=== PATIENT | female | born 1960 | race Caucasian/White ===

== ENCOUNTER → 2020-11-12 15:37 | Outpatient (CLI) | payer BC, SELFPAY ==
--- NOTE | 2020-11-12 15:39 | DI.RAD.S_ITS ---
PROCEDURE: XR RIBS LT MIN 3V W CXR1V INDICATIONS: s/p fall TECHNIQUE: 3 views of the left ribs were acquired, along with a single view chest. COMPARISON: None. FINDINGS: Surgical changes and devices: None. Bones and chest wall: No fractures or dislocations. No suspicious bony lesions. Overlying soft tissues appear unremarkable. Lungs and pleura: No pleural effusions or pneumothorax. Lungs appear clear. Mediastinum: Mediastinal contours appear normal. Heart size is normal. IMPRESSION: No visualized acute fracture or dislocation. However, if clinical concern and/or pain persist, short interval imaging followup in 7-10 days is recommended, as occult injury cannot be definitively excluded. Dictated by: Anaya Mercedes M.D. on 11/12/2020 at 15:59 Approved by: Anaya Mercedes M.D. on 11/12/2020 at 15:59
== END ==
PROVIDERS: Referring Provider Nurse Practitioner Family; Visit Provider Nurse Practitioner Family
DX: R07.81 Pleurodynia (principal)
CPT/HCPCS: 71101

== ENCOUNTER 2021-08-07 15:54 | Emergency (ER) | payer BC, SELFPAY ==
[2021-08-07] VITALS (9 sets, daily range): BP systolic 159–200; BP diastolic 87–103; PULSE 66–75; RESP 16–25; TEMP 35.6; O2SAT 97–100; BMI 25.7
--- NOTE | 2021-08-07 16:09 | DI.RAD.S_ITS ---
PROCEDURE: XR CHEST 1V INDICATIONS: chest pain TECHNIQUE: One view of the chest was acquired. COMPARISON: None. FINDINGS: Surgical changes and devices: None. Lungs and pleura: Lungs are clear. No pleural effusions or pneumothorax. Mediastinum: Mediastinal contours appear normal. Heart size is normal. Bones and chest wall: No suspicious bony lesions. Overlying soft tissues appear unremarkable. IMPRESSION: No acute pulmonary process. Dictated by: Anaya Mercedes M.D. on 08/07/2021 at 16:40 Approved by: Anaya Mercedes M.D. on 08/07/2021 at 16:41
[2021-08-07 16:21] LABS: Add Manual Diff / Slide Review NO; Basophils Absolute Auto 100 /uL (0-100); Eosinophils Absolute Auto 0 /uL (0-450); Eosinophils Percent Auto 0.4 % (2-4); Hematocrit 40.5 % (36-46); Hemoglobin 14.3 g/dL (12.0-16.0); Lymphocytes Absolute Auto 2400 /uL (1100-4500); Lymphocytes Percent Auto 25.7 % (25-40); Mean Corpuscular HGB Conc 35.2 % (30-36); Mean Corpuscular Volume 96.5 fL (80-100); Monocytes Absolute Auto 600 /uL (0-900); Monocytes Percent Auto 6.8 % (3-14); Neutrophils Absolute Auto 6200 /uL (1500-7000); Neutrophils Percent Auto 66.1 % (50-75); Platelet Count 226 X10^3/uL (150-400); Red Cell Distribution Width 12.3 % (11.6-14.8); White Blood Cell Count 9.4 X10^3/uL (4.5-11.0)
[2021-08-07 16:34] LABS: Alanine Aminotransferase 34 IU/L (<35); Albumin 4.9 g/dL (3.5-5.0); Albumin Globulin Ratio 1.9 (1.0-2.8); Alkaline Phosphatase 109 U/L (38-126); Aspartate Aminotransferase 39 IU/L (14-36); BUN Creatinine Ratio 16.9 (6-22); Bilirubin Total 0.4 mg/dL (0.2-1.3); Blood Urea Nitrogen 11 mg/dL (7-17); Carbon Dioxide 27 mmol/L (22-32); Chloride 101 mmol/L (98-107); Creatine Kinase 68 U/L (30-135); Estimated Glomerular Filt Rate > 60 mL/min (>60); Globulin 2.6 g/dL (1.7-4.1); Glucose 99 mg/dL (80-110); HEMOLYSIS < 15 (0-50); Lipase 93 U/L (23-300); Magnesium 1.9 mg/dL (1.6-2.3); Potassium 3.8 mmol/L (3.4-5.1); Sodium 136 mmol/L (137-145); Total Protein 7.5 g/dL (6.3-8.2)
[2021-08-07 16:44] LABS: Troponin I < 0.012 ng/mL (0.01-0.034)
--- NOTE | 2021-08-07 20:51 | ED.ARRPALP ---
HPI - Arrhythmia/Palpitations General Chief Complaint: Arrhythmia/Palpitations Stated Complaint: ABNORMAL EKG SENT BY [facility] Time Seen by Provider: 08/07/21 20:38 Source: patient Mode of arrival: Ambulatory History of Present Illness HPI narrative: Patient sent here from primary care office for evaluation EKG in their office that shows PVC. At the same EKG here is normal sinus rhythm. No PVC. Patient states she moved here from floor in the past year. Has been going through a lot of stress and depression. Is trying to renovated old house. She has seen her family doctor the past few weeks. She was started on sertraline a low dose couple weeks ago. Increase the doses well in the past week and she states her anxiety and depression has been worse. Very tearful last night and crying. She was at the office today for re-evaluation of this medication when the EKG was done. Blood pressure noted. She states even in [place] her primary care would note blood pressure high initially and then redo blood pressure and it would be normal. In November it was slightly high at 150 9/99. At this time patient denies any chest pain or palpitations. She denies any recent chest pain headache slurred speech facial droop or any dyspnea. She is only fill anxiety and depression. No SI or HI. Related Data Home Medications Medication Instructions Recorded Confirmed No Known Home Medications 11/12/20 11/12/20 Allergies Allergy/AdvReac Type Severity Reaction Status Date / Time No Known Drug Allergies Allergy Unverified 11/12/20 16:31 Review of Systems Review of Systems Narrative: GENERAL: Denies chills, fatigue, malaise, fever, sweats. HEENT: Denies sinus pain, ear pain, sore throat RESPIRATORY: Denies dyspnea, cough CARDIOVASCULAR: Denies chest pain, palpitations GASTROINTESTINAL: Denies nausea, vomiting, abdominal pain : Denies dysuria, frequency, hematuria MUSCULOSKELETAL: denies muscle or bony pain SKIN: Denies rash, skin lesions NEUROLOGIC: Denies weakness, numbness PSYCH: Positive for anxiety/depression, and negative for SI or HI. ROS Unobtainable: All systems reviewed & are unremarkable except as noted in HPI and below Patient History Social History Smoking Status: Never smoker Smoking Status: Never smoker Exam Narrative Exam Narrative: GENERAL: in no distress, not toxic not dyspneic HEAD: Normocephalic. EYES: Pupils equal round No scleral icterus. ENT: Mucous membranes moist. NECK: Trachea midline. CARDIOVASCULAR: Regular rate and rhythm without murmurs RESPIRATORY: Clear to auscultation. Breath sounds equal bilaterally. No wheezes, rales, or rhonchi. GASTROINTESTINAL: Abdomen soft, non-tender EXTREMITIES: No gross deformities. BACK: No flank tenderness. NEURO: AOx4. SKIN: Warm and dry PSYCH: Is mild/moderate anxious, is cooperative, not tearful. No SI or HI Initial Vital Signs Initial Vital Signs: Vital Signs Temperature 96.1 F L 08/07/21 16:00 Pulse Rate 75 08/07/21 16:00 Respiratory Rate 18 08/07/21 16:00 Blood Pressure 181/99 H 08/07/21 16:00 Pulse Oximetry 100 08/07/21 16:00 Oxygen Delivery Method 08/07/21 16:00 Course Course Course Narrative: No new issues during course of stay. Orders Ordered: ED Orders 08/07/21 16:09 XR chest 1V Stat EKG-12 Lead Stat 08/07/21 16:12 Complete Blood Count AUTO DIFF Stat Comprehensive Metabolic Panel Stat Lipase Stat Magnesium Stat Troponin & CK Cardiac Panel Stat Reevaluation(s) Reevaluation #1: Reviewed results with patient. She does agree likely her symptoms due to sertraline. She has been referred to Behavioral Health by her primary care as alternative to medicine for her anxiety and depression. Time: 20:54 Reevaluation #2: Blood pressure is improved. 159/87. Patient much more calm and relaxed. Not anxious. She desires discharge home. Time: 21:45 Vital Signs Vital signs: Vital Signs - 8 hr 08/07/21 16:00 08/07/21 18:48 08/07/21 18:49 Temperature 96.1 F L Pulse Rate 75 74 71 Respiratory Rate 18 Blood Pressure 181/99 H Pulse Oximetry 100 100 100 Oxygen Delivery Method Room Air 08/07/21 18:49 08/07/21 19:00 08/07/21 19:30 Temperature Pulse Rate 71 Respiratory Rate 16 Blood Pressure 200/103 H 189/99 H Pulse Oximetry 100 Oxygen Delivery Method 08/07/21 19:30 08/07/21 20:00 08/07/21 20:00 Temperature Pulse Rate 70 71 Respiratory Rate 18 19 Blood Pressure 168/98 H Pulse Oximetry 100 98 Oxygen Delivery Method 08/07/21 20:30 08/07/21 20:30 08/07/21 21:00 Temperature Pulse Rate 69 Respiratory Rate 25 H Blood Pressure 184/102 H 171/94 H Pulse Oximetry 97 Oxygen Delivery Method 08/07/21 21:00 08/07/21 21:30 08/07/21 21:30 Temperature Pulse Rate 66 66 Respiratory Rate 25 H 21 Blood Pressure 159/87 H Pulse Oximetry 97 97 Oxygen Delivery Method Room Air MDM - Arrhythmia/Palpitations Differential Diagnosis Differential diagnosis: Likely ventricular premature beats and other (Anxiety/depression/medication reaction) Lab Data Result diagrams: 08/07/21 16:12 08/07/21 16:12 Labs: Lab Results 08/07/21 08/07/21 Range/Units 16:12 16:12 WBC 9.4 (4.5-11.0) X10^3/uL RBC 4.20 (4.0-5.2) X10^6/uL Hgb 14.3 (12.0-16.0) g/dL Hct 40.5 (36-46) % MCV 96.5 (80-100) fL MCH 34.0 (26-34) PG MCHC 35.2 (30-36) % RDW 12.3 (11.6-14.8) % Plt Count 226 (150-400) X10^3/uL Neut % (Auto) 66.1 (50-75) % Lymph % (Auto) 25.7 (25-40) % [place] % (Auto) 6.8 (3-14) % Eos % (Auto) 0.4 L (2-4) % Baso % (Auto) 1.0 (0-2) % Neut # (Auto) 6200 (1883-8238) /uL Lymph # (Auto) 2400 (5721-2921) /uL [place] # (Auto) 600 (0-900) /uL Eos # (Auto) 0 (0-450) /uL Baso # (Auto) 100 (0-100) /uL Sodium 136 L (137-145) mmol/L Potassium 3.8 (3.4-5.1) mmol/L Chloride 101 (98-107) mmol/L Carbon Dioxide 27 (22-32) mmol/L BUN 11 (7-17) mg/dL Creatinine 0.65 (0.52-1.04) mg/dL Estimated GFR > 60 (>60) mL/min BUN/Creatinine Ratio 16.9 (6-22) Glucose 99 (80-110) mg/dL Calcium 9.0 (8.4-10.2) mg/dL Magnesium 1.9 (1.6-2.3) mg/dL Total Bilirubin 0.4 (0.2-1.3) mg/dL AST 39 H (14-36) IU/L ALT 34 (<35) IU/L Alkaline Phosphatase 109 (38-126) U/L Total Creatine Kinase 68 (30-135) U/L CK-MB (CK-2) TNP CK-MB (CK-2) Rel Index TNP Troponin I < 0.012 (0.01-0.034) ng/mL Total Protein 7.5 (6.3-8.2) g/dL Albumin 4.9 (3.5-5.0) g/dL Globulin 2.6 (1.7-4.1) g/dL Albumin/Globulin Ratio 1.9 (1.0-2.8) Lipase 93 (23-300) U/L Imaging Data Chest x-ray: Radiologist's Impresson: [place] [address] XRay Report Signed Patient: Nidia Corona MR#: [id number] : 1960 Acct:[id number] Age/Sex: 60 / F Date of Service: 08/07/21 Loc: ED Accession Number: [id number] ?? Procedure: XR chest 1V Ordering Provider: Amanda Arevalo D.O. PROCEDURE:? XR CHEST 1V ? INDICATIONS:? chest pain ? TECHNIQUE:? One view of the chest was acquired.? ? COMPARISON:? None. ? FINDINGS:? ? Surgical changes and devices:? None.? ? Lungs and pleura:? Lungs are clear.? No pleural effusions or pneumothorax.? ? Mediastinum:? Mediastinal contours appear normal.? Heart size is normal.? ? Bones and chest wall:? No suspicious bony lesions.? Overlying soft tissues appear unremarkable.? ? IMPRESSION:? No acute pulmonary process. ? ? Dictated by: Anaya Mercedes M.D. on 08/07/2021 at 16:40 ? ? Approved by: Anaya Mercedes M.D. on 08/07/2021 at 16:41 ? ECG Data Interpretation: Normal sinus rhythm rate [address] elevation or depression. MDM Narrative Medical decision making narrative: Appropriate for discharge home. Symptoms likely related to sertraline. Blood pressure likely related to anxiety. It resolved without any medication or intervention. Patient much more relieved after results reviewed and relaxed and blood pressure redone. Return precautions reviewed with her. She does have appropriate follow-up with primary care and behavioral health. Discharge Plan Departure Patient Disposition: Home Clinical Impression: Anxiety, Medication adverse effect Instructions: Premature Ventricular Beats, DI for Anxiety -- Adult Activity Restrictions/Additional Instructions: See family doctor as scheduled. Be sure to call referred Behavioral Health provider from your family doctor. You will need to review your medication sertraline with your family doctor. Will likely need to discontinue that. Be sure to have your blood pressure rechecked with your family doctor as well. Return if worsening questions or concerns. Prescriptions: No Action No Known Home Medications Visit Report Forms: Patient Portal/API
== END 2021-08-07 21:51 | disposition home or self-care (01) ==
PROVIDERS: Emergency Medicine; Emergency Provider Emergency Medicine
DX: F41.9 Anxiety disorder, unspecified (principal); T50.905A Adverse effect of unspecified drugs, medicaments and biological substances, initial encounter; R07.9 Chest pain, unspecified
CPT/HCPCS: 36415; 71045; 80053; 82550; 83690; 83735; 84484; 85025; 93005; 93010; 99283; 99284

== ENCOUNTER → 2022-04-23 14:43 | Outpatient (CLI) | payer OTHER, SELFPAY ==
--- NOTE | 2022-04-23 | DI.MG.S_ITS ---
BILATERAL DIGITAL SCREENING MAMMOGRAM 3D/2D WITH CAD: 04/23/2022 CLINICAL: Routine screening. Comparison is made to exam dated: 08/10/2020 mammogram - outside location. Both breasts are almost entirely fatty (category a/<25% glandular tissue). Current study was also evaluated with a Computer Aided Detection (CAD) system. No significant masses, calcifications, or other findings are seen in either breast. There has been no significant interval change. IMPRESSION: NEGATIVE There is no mammographic evidence of malignancy. A 1 year screening mammogram is recommended. Based on the Tyrer Cuzick model (a risk assessment model) the patient's lifetime risk is 5.4% and her 10 year risk is 2.2%. According to the ACR, ACS, and NCCN guidelines, an annual breast MRI exam along with mammogram is recommended if the patient's lifetime risk is 20% or greater. This exam was interpreted at Station ID: [id number]. NOTE: For mammograms, a report in lay terms will be sent to the patient. Approximately 15% of breast malignancies will not be visualized mammographically. In the management of a palpable breast mass, a negative mammogram must not discourage biopsy of a clinically suspicious lesion. Electronically Signed By: Rajan Flores M.D. acr/sumanth:04/24/2022 08:33:25 letter sent: Normal Exam ACR BI-RADS Category 1: Negative [id number]
== END ==
PROVIDERS: PCP Internal Medicine; Referring Provider Internal Medicine; Visit Provider Internal Medicine
DX: Z12.31 Encounter for screening mammogram for malignant neoplasm of breast (principal)
CPT/HCPCS: 77063; 77067

== ENCOUNTER → 2024-07-16 09:40 | Outpatient (CLI) | payer OTHER, SELFPAY ==
--- NOTE | 2024-07-16 09:42 | DI.MG.S_ITS ---
MM screening mammo BI: 07/16/2024. BI-RADS: 1 CLINICAL: 63-year old female for bilateral screening mammogram. Tyrer-Cuzick lifetime risk of 6.3%. No personal or first-degree family history of breast cancer. PRIOR EXAMS 04/23/2022, 08/10/2020 and 08/23/2019. MAMMOGRAPHY TECHNIQUE: 2D and 3D (tomosynthesis) digital mammographic views obtained, with additional images as needed for full coverage. Current study was also evaluated with a Computer Aided Detection (CAD) system. DENSITY B. There are scattered areas of fibroglandular density. MAMMOGRAPHY FINDINGS Bilateral: No suspicious mass, asymmetry, microcalcification, or other abnormality seen. IMPRESSION: * No evidence of malignancy. RECOMMENDATIONS Bilateral * Annual screening mammography. OVERALL ASSESSMENT CATEGORY BI-RADS-1: Negative. The [employer] recommends annual screening mammography beginning at age 40 for women with average risk of breast cancer. ELECTRONICALLY SIGNED: Tony Fernandez M.D. on 07/18/2024 at 08:06:24 AM PT Interpreting Station ID: [id number]
== END ==
PROVIDERS: PCP Internal Medicine; Referring Provider Internal Medicine; Visit Provider Internal Medicine
DX: Z12.31 Encounter for screening mammogram for malignant neoplasm of breast (principal)
CPT/HCPCS: 77063; 77067